=== PATIENT | male | born 1995 | race Caucasian/White ===

== ENCOUNTER 2016-04-30 23:33 | Emergency (ER) | payer OTHER ==
--- NOTE | 2016-05-01 02:46 | ED NURSING NOTES ---
Clinical Report - Nurses [facility] [address] [place] [address] 04/30/2016 23:35 Patient: VIPIN MILLER TRIAGE Triage time 2348. Acuity: LEVEL 3. Chief Complaint: NAUSEA and VOMITING. PIEDAD COMA SCORE: [place] Coma Scale: 15- eyes open spontaneously (4); best verbal response- oriented x 4 (5); best motor response- obeys commands (6). --23:54 Urmila Goodwin R.N. 23:48 04/30/16. BP: 126/83. HR: 57. RR: 18 (unlabored). O2 saturation: 100% on room air. Temp: 97.9 F (oral). Pain level now: 0/10. --23:54 Urmila Goodwin R.N. Weight: 68 kg stated. Height/Length: 66 inches Per Patient. BMI: 24.2. --23:48 Urmila Goodwin R.N. Medications None. --23:52 Urmila Goodwin R.N. Medication/allergy information source: the patient. --23:54 Urmila Goodwin R.N. Allergies No Known Drug Allergy. --23:52 Urmila Goodwin R.N. History Arrived by private vehicle. Historian: patient. Accompanied by family. Primary physician ([facility]). ( pt c/o nausea, vomiting, dizziness and chills x 2 days. pt denies abdominal pain or diarrhea. pt didn't have flu shot this season.). Onset. (2 days ago). He has had nausea and vomiting. Treatment SHEET ROCK NAILER: (Peptobismol). SOCIAL HX: Never smoker. History of drug use: marijuana. (daily). No recent travel. No known contact with a sick individual. ABUSE ASSESSMENT: No report of abuse. FALL RISK ASSESSMENT: Fall risk assessment completed. No fall risk identified. NUTRITIONAL RISK ASSESSMENT: The nutritional risk assessment revealed no deficiencies. FUNCTIONAL ASSESSMENT: Functional assessment: no impairments noted. LEARNING NEEDS ASSESSMENT: The learning needs assessment revealed no barriers. SKIN INTEGRITY ASSESSMENT: Skin integrity risk assessment completed. No skin integrity risk identified. --23:54 Urmila Goodwin R.N. ADDITIONAL SURGERIES: no known surgeries. Interventions ID band on patient. To treatment room. --23:54 Urmila Goodwin R.N. PHYSICAL ASSESSMENT Ambulatory to room. GENERAL / NEURO / PSYCH: Alert. Oriented X 4. Appears in no acute distress. HEENT: Mucous membranes are pink. RESPIRATORY: Respirations not labored. GI / : The patient has had nausea. Abdomen soft and nontender. Bowel sounds within normal limits. SKIN: Skin is warm and dry. --00:39 Urmila Goodwin R.N. NURSING PROGRESS NOTES Patient gowned. Head of bed elevated. Two patient identifiers checked. Call light placed in reach. Side rails up x 1. Bed placed in lowest position. Brakes of bed on. Patient ready for evaluation. --00:38 Urmila Goodwin R.N. 02:20 pt waiting to see MD. pt c/o vomiting x 1 in room. --02:40 Urmila Goodwin R.N. 02:20 05/01/16. BP: 127/75. HR: 71. RR: 18 (unlabored). O2 saturation: 100% on room air. Pain level now: 0/10. --02:40 Urmila Goodwin R.N. 02:35 notified MD of pt vomiting, received orders. --02:41 Urmila Goodwin R.N. 02:44 05/01/2016 Zofran ODT (Ondansetron) PO Oral Disintegrating Tablets 4 mg given. Allergies verified and confirmed 5 rights. --02:44 Urmila Goodwin R.N. DISPOSITION / DISCHARGE Departure time: 5. Condition at departure: improved. No learning barriers present. Discharge instructions provided and reviewed with the patient. Reviewed medication(s). Prescription(s) given to the patient (Zofran, Prilosec, Reglan). Patient verbalized understanding. Written instructions provided in Wallisian. The patient was discharged by the physician. He was discharged home and accompanied by family. He left the Emergency Department ambulatory and via private vehicle. Family member driving. Medication list reviewed and validated with the patient. --04:10 Urmila Goodwin R.N. 02:55 05/01/16. BP: deferred. HR: deferred. RR: deferred. O2 saturation: deferred. Temp: deferred. Pain level now deferred. --04:10 Urmila Goodwin R.N. pt states nausea has decreased. --04:10 Urmila Goodwin R.N. Locked/Released at 05/01/2016 4:10 by Urmila Goodwin R.N.
--- NOTE | 2016-05-01 02:46 | ED ORDER SUMMARY ---
..... Patient: VIPIN MILLER OrderSheet [facility] VisitID: [id number] [address] [place] [address] 20y, M Registration Date/Time: 04/30/2016 ORDER SHEET Weight: 68.0 kg (stated) Allergies: No Known Drug Allergy GENERAL ORDERS: MEDICATION ORDERS: Zofran ODT PO 4 mg (NOW) (02:41 05/01/2016 HKone R.N. verbal order read back to Fidel STEPHENS) (Ack 2:41 HKone R.N.) (2:44 HKone R.N.) IV FLUIDS: ORDER SHEET NOTES: [Electronically signed by Urmila Goodwin R.N. (04:10 05/01/2016)] [Electronically signed by Gilbert Vergara MD (22:10 05/02/2016)] [Electronically locked/signed by Urmila Goodwin R.N. (04:05/01/2016)]
--- NOTE | 2016-05-01 02:46 | ED CLINICAL REPORT ---
Clinical Report - Physicians/Mid Levels [facility] [address] [place] [address] 04/30/2016 23:35 Patient: VIPIN MILLER Time Seen: 02:41 May 01 2016. Arrived- By private vehicle. Historian- patient. CPT: ER phys charges level 3 (#[id number]). HISTORY OF PRESENT ILLNESS Chief Complaint: VOMITING. 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 The patient has had nausea and vomiting. Possible bad food exposure. No known contact with a sick individual. The illness is described as moderate. (HAs had a lot of reflux recently). Similar symptoms previously: None. Recent medical care: Not recently seen/assessed. REVIEW OF SYSTEMS No fever, difficulty with urination, dark urine, headache or sore throat. No cough, chest pain, difficulty breathing or skin rash. All systems otherwise negative, except as recorded above. PAST HISTORY Gastroesophageal Reflux. Chest Pain of GI Origin. Abdominal Pain. Lifestyle / Substance Problems. Hypertension. URI. Impacted Cerumen. Additional Surgeries: no known surgeries. Medications: None. Allergies: No Known Drug Allergy. SOCIAL HISTORY Never smoker. History of drug use: marijuana. No alcohol use. ADDITIONAL NOTES The nursing notes have been reviewed. PHYSICAL EXAM Vital Signs: 04/30/2016 23:48 BP: 126/83. HR: 57. RR: 18. O2 saturation: 100%. Temp: 97.9 F. Pain level now: 0/10. Appearance: Alert. Patient in mild distress. Eyes: Eyes normal inspection. ENT: Pharynx normal. Neck: Normal inspection. CVS: Normal heart rate and rhythm. Heart sounds normal. Pulses normal. Respiratory: No respiratory distress. Breath sounds normal. Abdomen: Soft. Mild tenderness. Bowel sounds normal. Skin: Skin warm. Normal skin color. No rash. Neuro: Oriented X 3. No motor deficit. No sensory deficit. Reflexes normal. PROGRESS AND PROCEDURES Course of Care: Zofran 4 mg po ODT Patient is stable. Symptoms better. Patient/family counseled. Disposition: Discharged. Condition: stable. CLINICAL IMPRESSION Acute viral gastroenteritis. Severe reflux. INSTRUCTIONS No strenuous activity. Rest. Do not work for two days until better. Take clear liquids only (frequent sips) for the next 24 hours until better. Warnings: Further evaluation is necessary. Prescription Medications: Zofran (orally disintegrating tablets) 4 mg: take 1 orally every 4 hours as needed for nausea. Dispense ten (10). No refill. Substitution is permissible. Prilosec 20 mg capsules: Take 1 capsule orally once daily. Dispense fifteen (15). No refills. Substitution is permissible. Reglan 10 mg tablets: take 1 orally four times daily as needed for nausea or vomiting. Dispense twenty (20). No refills. Substitution is permissible. Follow-up: Follow up with your doctor Tuesday if not better. Call for an appointment. Understanding of the discharge instructions verbalized by patient. (Electronically signed by Gilbert Vergara MD 05/02/2016 22:10)
--- NOTE | 2016-05-01 02:46 | ED CLINICAL REPORT ---
Clinical Report - Physicians/Mid Levels [facility] [address] [place] [place] [address] 04/30/2016 23:35 Patient: VIPIN MILLER Time Seen: 02:41 May 01 2016. Arrived- By private vehicle. Historian- patient. CPT: ER phys charges level 3 (#[id number]). 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 The patient has had nausea and vomiting. Possible bad food exposure. No known contact with a sick individual. The illness is described as moderate. (HAs had a lot of reflux recently). Similar symptoms previously: None. Recent medical care: Not recently seen/assessed. REVIEW OF SYSTEMS No fever, difficulty with urination, dark urine, headache or sore throat. No cough, chest pain, difficulty breathing or skin rash. All systems otherwise negative, except as recorded above. PAST HISTORY Gastroesophageal Reflux. Chest Pain of GI Origin. Abdominal Pain. Lifestyle / Substance Problems. Hypertension. URI. Impacted Cerumen. Additional Surgeries: no known surgeries. Medications: None. Allergies: No Known Drug Allergy. SOCIAL HISTORY Never smoker. History of drug use: marijuana. No alcohol use. ADDITIONAL NOTES The nursing notes have been reviewed. PHYSICAL EXAM Vital Signs: 04/30/2016 23:48 BP: 126/83. HR: 57. RR: 18. O2 saturation: 100%. Temp: 97.9 F. Pain level now: 0/10. Appearance: Alert. Patient in mild distress. Eyes: Eyes normal inspection. ENT: Pharynx normal. Neck: Normal inspection. CVS: Normal heart rate and rhythm. Heart sounds normal. Pulses normal. Respiratory: No respiratory distress. Breath sounds normal. Abdomen: Soft. Mild tenderness. Bowel sounds normal. Skin: Skin warm. Normal skin color. No rash. Neuro: Oriented X 3. No motor deficit. No sensory deficit. Reflexes normal. PROGRESS AND PROCEDURES Course of Care: Zofran 4 mg po ODT Patient is stable. Symptoms better. Patient/family counseled. Disposition: Discharged. Condition: stable. CLINICAL IMPRESSION Acute viral gastroenteritis. Severe reflux. INSTRUCTIONS No strenuous activity. Rest. Do not work for two days until better. Take clear liquids only (frequent sips) for the next 24 hours until better. Warnings: Further evaluation is necessary. Prescription Medications: Zofran (orally disintegrating tablets) 4 mg: take 1 orally every 4 hours as needed for nausea. Dispense ten (10). No refill. Substitution is permissible. Prilosec 20 mg capsules: Take 1 capsule orally once daily. Dispense fifteen (15). No refills. Substitution is permissible. Reglan 10 mg tablets: take 1 orally four times daily as needed for nausea or vomiting. Dispense twenty (20). No refills. Substitution is permissible. Follow-up: Follow up with your doctor Tuesday if not better. Call for an appointment. Understanding of the discharge instructions verbalized by patient. (Electronically signed by Gilbert Vergara MD 05/02/2016 22:10)
--- NOTE | 2016-05-01 02:46 | ED NURSING NOTES ---
Clinical Report - Nurses [place] [address] [place] [address] 04/30/2016 23:35 Patient: VIPIN MILLER TRIAGE Triage time 2348. Acuity: LEVEL 3. Chief Complaint: NAUSEA and VOMITING. PIEDAD COMA SCORE: [place] Coma Scale: 15- eyes open spontaneously (4); best verbal response- oriented x 4 (5); best motor response- obeys commands (6). --23:54 Urmila Goodwin R.N. 23:48 04/30/16. BP: 126/83. HR: 57. RR: 18 (unlabored). O2 saturation: 100% on room air. Temp: 97.9 F (oral). Pain level now: 0/10. --23:54 Urmila Goodwin R.N. Weight: 68 kg stated. Height/Length: 66 inches Per Patient. BMI: 24.2. --23:48 Urmila Goodwin R.N. Medications None. --23:52 Urmila Goodwin R.N. Medication/allergy information source: the patient. --23:54 Urmila Goodwin R.N. Allergies No Known Drug Allergy. --23:52 Urmila Goodwin R.N. History Arrived by private vehicle. Historian: patient. Accompanied by family. Primary physician ([facility]). ( pt c/o nausea, vomiting, dizziness and chills x 2 days. pt denies abdominal pain or diarrhea. pt didn't have flu shot this season.). Onset. (2 days ago). He has had nausea and vomiting. Treatment CLIENT DIRECTOR: (Peptobismol). SOCIAL HX: Never smoker. History of drug use: marijuana. (daily). No recent travel. No known contact with a sick individual. ABUSE ASSESSMENT: No report of abuse. FALL RISK ASSESSMENT: Fall risk assessment completed. No fall risk identified. NUTRITIONAL RISK ASSESSMENT: The nutritional risk assessment revealed no deficiencies. FUNCTIONAL ASSESSMENT: Functional assessment: no impairments noted. LEARNING NEEDS ASSESSMENT: The learning needs assessment revealed no barriers. SKIN INTEGRITY ASSESSMENT: Skin integrity risk assessment completed. No skin integrity risk identified. --23:54 Urmila Goodwin R.N. ADDITIONAL SURGERIES: no known surgeries. Interventions ID band on patient. To treatment room. --23:54 Urmila Goodwin R.N. PHYSICAL ASSESSMENT Ambulatory to room. GENERAL / NEURO / PSYCH: Alert. Oriented X 4. Appears in no acute distress. HEENT: Mucous membranes are pink. RESPIRATORY: Respirations not labored. GI / : The patient has had nausea. Abdomen soft and nontender. Bowel sounds within normal limits. SKIN: Skin is warm and dry. --00:39 Urmila Goodwin R.N. NURSING PROGRESS NOTES Patient gowned. Head of bed elevated. Two patient identifiers checked. Call light placed in reach. Side rails up x 1. Bed placed in lowest position. Brakes of bed on. Patient ready for evaluation. --00:38 Urmila Goodwin R.N. 02:20 pt waiting to see MD. pt c/o vomiting x 1 in room. --02:40 Urmila Goodwin R.N. 02:20 05/01/16. BP: 127/75. HR: 71. RR: 18 (unlabored). O2 saturation: 100% on room air. Pain level now: 0/10. --02:40 Urmila Goodwin R.N. 02:35 notified MD of pt vomiting, received orders. --02:41 Urmila Goodwin R.N. 02:44 05/01/2016 Zofran ODT (Ondansetron) PO Oral Disintegrating Tablets 4 mg given. Allergies verified and confirmed 5 rights. --02:44 Urmila Goodwin R.N. DISPOSITION / DISCHARGE Departure time: 5. Condition at departure: improved. No learning barriers present. Discharge instructions provided and reviewed with the patient. Reviewed medication(s). Prescription(s) given to the patient (Zofran, Prilosec, Reglan). Patient verbalized understanding. Written instructions provided in Iraqi. The patient was discharged by the physician. He was discharged home and accompanied by family. He left the Emergency Department ambulatory and via private vehicle. Family member driving. Medication list reviewed and validated with the patient. --04:10 Urmila Goodwin R.N. 02:55 05/01/16. BP: deferred. HR: deferred. RR: deferred. O2 saturation: deferred. Temp: deferred. Pain level now deferred. --04:10 Urmila Goodwin R.N. pt states nausea has decreased. --04:10 Urmila Goodwin R.N. Locked/Released at 05/01/2016 4:10 by Urmila Goodwin R.N.
--- NOTE | 2016-05-01 02:46 | ED ORDER SUMMARY ---
..... Patient: VIPIN MILLER OrderSheet [facility] VisitID: [id number] [address] [place] [address] 20y, M Registration Date/Time: 04/30/2016 ORDER SHEET Weight: 68.0 kg (stated) Allergies: No Known Drug Allergy GENERAL ORDERS: MEDICATION ORDERS: Zofran ODT PO 4 mg (NOW) (02:41 05/01/2016 HKone R.N. verbal order read back to Fidel STEPHENS) (Ack 2:41 HKone R.N.) (2:44 HKone R.N.) IV FLUIDS: ORDER SHEET NOTES: [Electronically signed by Urmila Goodwin R.N. (04:10 05/01/2016)] [Electronically signed by Gilbert Vergara MD (22:10 05/02/2016)] [Electronically locked/signed by Urmila Goodwin R.N. (04:05/01/2016)]
--- NOTE | 2016-05-02 22:10 | ED MAR SUMMARY ---
..... Medication Administration Record [facility] [address] [place] [address] Patient: VIPIN MILLER Visit ID: [id number] 20y, M Weight: 68.0 kg Height/Length: 66 in BMI: 24.2 ALLERGIES: No Known Drug Allergy Given 02:44 05/01/2016 Urmila Goodwin R.N. Medication Administered: ZOFRAN ODT [PO] (ONDANSETRON), Dose: 4 mg Oral Disintegrating Tablets PO. Medication Ordered: Zofran ODT PO 4 mg (NOW).
--- NOTE | 2016-05-02 22:10 | ED MAR SUMMARY ---
..... Medication Administration Record [facility] [address] [place] [address] Patient: VIPIN MILLER Visit ID: [id number] 20y, M Weight: 68.0 kg Height/Length: 66 in BMI: 24.2 ALLERGIES: No Known Drug Allergy Given 02:44 05/01/2016 Urmila Goodwin R.N. Medication Administered: ZOFRAN ODT [PO] (ONDANSETRON), Dose: 4 mg Oral Disintegrating Tablets PO. Medication Ordered: Zofran ODT PO 4 mg (NOW).
--- NOTE | 2016-05-02 22:10 | ED DISCHARGE INSTRUCTIONS ---
Patient: VIPIN MILLER General Instructions [facility] VisitID: [id number] [place] [address] 20y, M Registration Date/Time: 04/30/2016 Acute viral gastroenteritis. Severe reflux. INSTRUCTIONS No strenuous activity. Rest. Do not work for two days until better. Take clear liquids only (frequent sips) for the next 24 hours until better. Warnings: Further evaluation is necessary. Prescription Medications: Zofran (orally disintegrating tablets) 4 mg: take 1 orally every 4 hours as needed for nausea. Dispense ten (10). No refill. Substitution is permissible. Prilosec 20 mg capsules: Take 1 capsule orally once daily. Dispense fifteen (15). No refills. Substitution is permissible. Reglan 10 mg tablets: take 1 orally four times daily as needed for nausea or vomiting. Dispense twenty (20). No refills. Substitution is permissible. Follow-up: Follow up with your doctor Tuesday if not better. Call for an appointment. Understanding of the discharge instructions verbalized by patient. ADDITIONAL INFORMATION Viral Gastroenteritis (6Yr-Adult) Gastroenteritis is another name for thestomach flu.It is most often caused by a virus that affects the stomach and intestinal tract. Symptoms include stomach cramping and fever, vomiting and/or diarrhea, and can last from 2 to 7 days. The danger from repeated vomiting or diarrhea is dehydration. This is the loss of too much water and minerals from the body. When this occurs, body fluids must be replaced. Antibiotics are not effective for this illness, but simple home treatment will be helpful. Home Care If symptoms are severe, rest at home for the next 24 hours. Avoid tobacco, caffeine, and alcohol use, which can worsen symptoms. Acetaminophen (Tylenol) or ibuprofen (Motrin, Advil) may be usedfor fever or pain unless another medication was prescribed. NOTE: If you have chronic liver or kidney disease or ever had a stomach ulcer or GI bleeding, talk with your doctor before using these medicines. Aspirin should never be used in anyone under 18 years of age who is ill with a fever. It may cause severe liver damage. If medicines for diarrhea or vomiting were prescribed, be sure they are takenonly as directed. If vomiting, drink small amounts of clear fluids (such as water, sports drinks, clear sodas) at frequent intervals to prevent dehydration. Start with 1 to 2 tablespoons every 10 minutes. Once vomiting stops, follow these guidelines: During The First 12 To 24 Hours follow the diet below: Beverages: Sport drinks like Gatorade, soft drinks without caffeine; adelso oscar, mineral water (plain or flavored), decaffeinated tea and coffee. Soups: Clear broth, consomm and bouillon Desserts: Plain gelatin (Jell-O), Popsicles and fruit juice bars. During The Next 24 Hours you may add the following to the above: Hot cereal, plain toast, bread, rolls, crackers Plain noodles, rice, mashed potatoes, chicken noodle or rice soup Unsweetened canned fruit (avoid pineapple), bananas Limit fat intake to less than 15 grams per day by avoiding margarine, butter, oils, mayonnaise, sauces, gravies, fried foods, peanut butter, meat, poultry, and fish. Limit fiber; avoid raw or cooked vegetables, fresh fruits (except bananas), and bran cereals. Limit caffeine and chocolate. Do not use spices or seasonings except salt. During The Next 24 Hours The patient can gradually resume a normal diet as symptoms lessen. Preventing Spread Hand washing with soap and water is the best way to prevent the spread of viruses. Caregivers should wash their hands before andafter touching the sick person. The sick person, as well as everyone in the family,should wash their hands after using the toilet and before meals. Clean the toilet after each use. People with diarrhea should not prepare food for others. If you are preparing your own foods, wash your hands before and after. Follow Up with your doctor as advised. Call your doctor if you are not improving over the next 2 to 3 days. If a stool (diarrhea) sample was taken, you may call in 2 days (or as directed) for the results. Get Prompt Medical Attention if any of the following occur: Increasing abdominal pain Continued vomiting (unable to keep liquids down) Frequent diarrhea (more than 5 times a day) Blood in vomit or stool (black or red color) Dark urine, reduced urine output, or extreme thirst Weakness, dizziness, fainting Drowsiness, confusion, stiff neck, or seizure Fever of 100.4F (38C) oral or higher, not better with fever medication New rash Clear Liquid Diet Clear liquids are any liquid that you can see through as well as those that are very easy to digest. This is used while the body is recovering from irritation or infection of the stomach or intestinal tract. It may also be used before special procedures or surgery. This diet is to be used no more than three days. You may include the following items. Adults Adults should drink a total of 23 quarts of liquid per day. It may be easier to drink small frequent servings rather than a few large ones. Liquids can include: Fruit juices.Strained orange juice or lemonade (no pulp), apple, grape and cranberry juice, clear fruit drinks, sports drinks Beverages.Sport drinks, sodas, mineral water (plain or flavored), tea, black coffee, liquid gelatin (add twice the recommended amount of water) Soups.Clear broth, consomm, bouillon Desserts.Plain gelatin, popsicles, fruit juice bars Children Over 2 years old The following liquids are acceptable for children over age 2: Fruit juices.Strained orange juice or lemonade (no pulp), apple, grape and cranberry juice, clear fruit drinks Beverages. Sports drinks, sodas, mineral water (plain or flavored), tea, liquid gelatin (add twice the recommended amount of water) Soups. Clear broth, consomm, bouillon Desserts. Plain gelatin, popsicles, fruit juice bars Children under 2 years old Oral rehydration fluids such are available at drug stores and most grocery stores without a prescription. Ondansetron Oral disintegrating tablet What is this medicine? ONDANSETRON (on KASSI se sean) is used to treat nausea and vomiting caused by chemotherapy. It is also used to prevent or treat nausea and vomiting after surgery. How should I use this medicine? These tablets are made to dissolve in the mouth. Do not try to push the tablet through the foil backing. With dry hands, peel away the foil backing and gently remove the tablet. Place the tablet in the mouth and allow it to dissolve, then swallow. While you may take these tablets with water, it is not necessary to do so. Talk to your gis database administrator regarding the use of this medicine in children. Special care may be needed. What side effects may I notice from receiving this medicine? Side effects that you should report to your doctor or health childcare administrator as soon as possible: allergic reactions like skin rash, itching or hives, swelling of the face, lips, or tongue breathing problems dizziness fast or irregular heartbeat feeling faint or lightheaded, falls fever and chills swelling of the hands and feet tightness in the chest Side effects that usually do not require medical attention (report to your doctor or health childcare administrator if they continue or are bothersome): constipation or diarrhea headache What may interact with this medicine? Do not take this medicine with any of the following medications: -apomorphine -cisapride -dofetilide -dronedarone -pimozide -thioridazine -ziprasidone This medicine may also interact with the following medications: -carbamazepine -phenytoin -rifampicin -tramadol -other medicines that prolong the QT interval (cause an abnormal heart rhythm) What if I miss a dose? If you miss a dose, take it as soon as you can. If it is almost time for your next dose, take only that dose. Do not take double or extra doses. Where should I keep my medicine? Keep out of the reach of children. Store between 2 and 30 degrees C (36 and 86 degrees F). Throw away any unused medicine after the expiration date. What should I tell my health care provider before I take this medicine? They need to know if you have any of these conditions: heart disease history of irregular heartbeat liver disease low levels of magnesium or potassium in the blood an unusual or allergic reaction to ondansetron, granisetron, other medicines, foods, dyes, or preservatives or trying to get breast-feeding What should I watch for while using this medicine? Check with your doctor or health childcare administrator as soon as you can if you have any sign of an allergic reaction. Metoclopramide Hydrochloride Oral tablet What is this medicine? METOCLOPRAMIDE (met oh kloe PRA mide) is used to treat the symptoms of gastroesophageal reflux disease (GERD) like heartburn. It is also used to treat people with slow emptying of the stomach and intestinal tract. How should I use this medicine? Take this medicine by mouth with a glass of water. Follow the directions on the prescription label. Take this medicine on an empty stomach, about 30 minutes before eating. Take your doses at regular intervals. Do not take your medicine more often than directed. Do not stop taking except on the advice of your doctor or health childcare administrator. A special MedGuide will be given to you by the pharmacist with each prescription and refill. Be sure to read this information carefully each time. Talk to your gis database administrator regarding the use of this medicine in children. Special care may be needed. What side effects may I notice from receiving this medicine? Side effects that you should report to your doctor or health childcare administrator as soon as possible: allergic reactions like skin rash, itching or hives, swelling of the face, lips, or tongue abnormal production of milk in females breast enlargement in both males and females change in the way you walk difficulty moving, speaking or swallowing drooling, lip smacking, or rapid movements of the tongue excessive sweating fever involuntary or uncontrollable movements of the eyes, head, arms and legs irregular heartbeat or palpitations muscle twitches and spasms unusually weak or tired Side effects that usually do not require medical attention (report to your doctor or health childcare administrator if they continue or are bothersome): change in sex drive or performance depressed mood diarrhea difficulty sleeping headache menstrual changes restless or nervous What may interact with this medicine? acetaminophen cyclosporine digoxin medicines for blood pressure medicines for diabetes, including insulin medicines for hay fever and other allergies medicines for depression, especially an Monoamine Oxidase Inhibitor (MAOI) medicines for Parkinson's disease, like levodopa medicines for sleep or for pain tetracycline What if I miss a dose? If you miss a dose, take it as soon as you can. If it is almost time for your next dose, take only that dose. Do not take double or extra doses. Where should I keep my medicine? Keep out of the reach of children. Store at room temperature between 20 and 25 degrees C (68 and 77 degrees F). Protect from light. Keep container tightly closed. Throw away any unused medicine after the expiration date. What should I tell my health care provider before I take this medicine? They need to know if you have any of these conditions: breast cancer depression diabetes heart failure high blood pressure kidney disease liver disease Parkinson's disease or a movement disorder pheochromocytoma seizures stomach obstruction, bleeding, or perforation an unusual or allergic reaction to metoclopramide, procainamide, sulfites, other medicines, foods, dyes, or preservatives or trying to get breast-feeding What should I watch for while using this medicine? It may take a few weeks for your stomach condition to start to get better. However, do not take this medicine for longer than 12 weeks. The longer you take this medicine, and the more you take it, the greater your chances are of developing serious side effects. If you are an elderly patient, a female patient, or you have diabetes, you may be at an increased risk for side effects from this medicine. Contact your doctor immediately if you start having movements you cannot control such as lip smacking, rapid movements of the tongue, involuntary or uncontrollable movements of the eyes, head, arms and legs, or muscle twitches and spasms. Patients and their families should watch out for worsening depression or thoughts of suicide. Also watch out for any sudden or severe changes in feelings such as feeling anxious, agitated, panicky, irritable, hostile, aggressive, impulsive, severely restless, overly excited and hyperactive, or not being able to sleep. If this happens, especially at the beginning of treatment or after a change in dose, call your doctor. Do not treat yourself for high fever. Ask your doctor or health childcare administrator for advice. You may get drowsy or dizzy. Do not drive, use machinery, or do anything that needs mental alertness until you know how this drug affects you. Do not stand or sit up quickly, especially if you are an older patient. This reduces the risk of dizzy or fainting spells. Alcohol can make you more drowsy and dizzy. Avoid alcoholic drinks. You have been given the following additional information: Gastroenteritis, Viral (6Y-Adult) Diet, Clear Liquid Ondansetron Oral disintegrating tablet Metoclopramide Hydrochloride Oral tablet No strenuous activity. Rest. Do not work for two days until better. (Electronically signed by Gilbert Vergara MD 05/02/2016 22:10)
--- NOTE | 2016-05-02 22:10 | ED MED RECONCILIATION SUMMARY ---
Patient: VIPIN MILLER Medication Reconciliation Report [facility] VisitID: [id number] [place] [address] 20y, M Registration Date/Time: 04/30/2016 Weight: 68.0 kg Height/Length: 66 in. BMI: 24.2 ALLERGIES: No Known Drug Allergy The patient's Home Medications are listed below: NONE. The source(s) of the original Home Medication information: patient The following Medications were given to the patient in the Emergency Department: Zofran ODT [PO] PO 4 mg, administered: 05/01/2016 2:44:00 AM The following Medications were prescribed to the patient: Zofran (orally disintegrating tablets) 4 mg: take 1 orally every 4 hours as needed for nausea. Dispense ten (10). No refill. Substitution is permissible. -- Gilbert Vergara MD Prilosec 20 mg capsules: Take 1 capsule orally once daily. Dispense fifteen (15). No refills. Substitution is permissible. -- Gilbert Vergara MD Reglan 10 mg tablets: take 1 orally four times daily as needed for nausea or vomiting. Dispense twenty (20). No refills. Substitution is permissible. -- Gilbert Vergara MD
--- NOTE | 2016-05-02 22:10 | ED MED RECONCILIATION SUMMARY ---
Patient: VIPIN MILLER Medication Reconciliation Report [facility] VisitID: [id number] [place] [address] 20y, M Registration Date/Time: 04/30/2016 Weight: 68.0 kg Height/Length: 66 in. BMI: 24.2 ALLERGIES: No Known Drug Allergy The patient's Home Medications are listed below: NONE. The source(s) of the original Home Medication information: patient The following Medications were given to the patient in the Emergency Department: Zofran ODT [PO] PO 4 mg, administered: 05/01/2016 2:44:00 AM The following Medications were prescribed to the patient: Zofran (orally disintegrating tablets) 4 mg: take 1 orally every 4 hours as needed for nausea. Dispense ten (10). No refill. Substitution is permissible. -- Gilbert Vergara MD Prilosec 20 mg capsules: Take 1 capsule orally once daily. Dispense fifteen (15). No refills. Substitution is permissible. -- Gilbert Vergara MD Reglan 10 mg tablets: take 1 orally four times daily as needed for nausea or vomiting. Dispense twenty (20). No refills. Substitution is permissible. -- Gilbert Vergara MD
== END 2016-05-01 02:55 | disposition home or self-care (01) ==
LOC: ED SRH 23:33
DX: A08.39 Other viral enteritis (principal); K21.9 Gastro-esophageal reflux disease without esophagitis; I10 Essential (primary) hypertension